=== PATIENT | female | born 1940 | race Caucasian/White ===

== ENCOUNTER → 2019-07-22 | Outpatient (CLI) | payer MEDICARE, BC ==
[~2019-07-22] VITALS: Ht 157.5 cm; Wt 53.5 kg
[~2019-07-22] MED LIST: ADVIL200 MG PO; ALLEGRA 180MG180 MG PO; ASPIRIN 81M81 MG/TA2 PO; CALCIUM CARBON650 M2 PO; COLACE 100100 MG/CAP PO; COREG12.5 MG PO; HYZAAR 25 MG-101 TAB PO; KLOR-CON M2020 MEQ PO; MASON NATURAL2000 IU PO; MULTI VITAMINS1 TAB PO; PROTONIX 40MG T40 MG PO; RT ADVAIR HFA 1112 G IH; VENTOLIN0.09 MG IH; VITAMINC1000TA PO
[2019-07-22 10:04] VITALS: BP 164/89; PULSE 57
[2019-07-22 11:40] VITALS: BP 186/89; PULSE 56
--- NOTE | 2019-07-22 11:45 | NUR ---
Radiologist talked with patient concerning biopsy, location, size and risks of bleeding, will not do biopsy today due to these things, will contact Dr Morrison and recommend CT in 1 month or so to check size ect.
--- NOTE | 2019-07-22 12:00 | NUR ---
pt back to radiology holding area, procedure not done due to location, size and risks of biopsy. int d'cd intact, pt dressed, recommended for repeat CT scan 1 month or so, pt discharged amb. with family
== END ==
LOC: COL.RAD 09:30
DX: R91.1 Solitary pulmonary nodule (principal)